=== PATIENT | female | born 1960 | race Caucasian/White ===

== ENCOUNTER 2022-12-09 08:07 | Emergency (ER) | payer MEDICARE, SELFPAY ==
[2022-12-09] VITALS (9 sets, daily range): BP systolic 134–151; BP diastolic 82–92; PULSE 73–90; RESP 16–21; TEMP 36.1; O2SAT 95–100
--- NOTE | 2022-12-09 08:17 | ED.DIZZY ---
HPI - Dizziness General Chief Complaint: Dizziness Stated Complaint: Stroke symptoms Time Seen by Provider: 12/09/22 08:10 Source: patient and RN notes reviewed Mode of arrival: ambulatory Limitations: no limitations History of Present Illness HPI Narrative: Patient states that she feels unsteady on her feet for the last couple of days. He says this sometimes happens when she takes her Seroquel early in the morning instead of at bedtime. She is concerned that she might be having a stroke. She was given some ice chips in the slurring of her speech went away because her mouth was so dry. She has no deficits. She complains of no loss of strength in any of her extremities. She also has a history of Meniere's disease. She says she did not take her Seroquel until 130 this morning. MD elicited complaint: disequilibrium Pertinent past history: Meniere's disease Onset (ago): day(s) (2) Timing: gradual onset Severity: mild Description: off-balance History of similar symptoms: Yes Exacerbating factors: movement/ambulation Relieving factors: rest Associated symptoms: denies other symptoms Related Data Home Medications Medication Instructions Recorded Confirmed atorvastatin 40 mg tablet 40 mg PO DAILY 12/09/22 12/09/22 benztropine 1 mg tablet 3 mg PO DAILY 12/09/22 12/09/22 carbamazepine 200 mg tablet 600 mg PO DAILY 12/09/22 12/09/22 clonidine HCl 0.1 mg tablet 2.5 mg PO DAILY 12/09/22 12/09/22 fesoterodine 8 mg tablet,extended 8 mg PO DAILY 12/09/22 12/09/22 release 24 hr galantamine 16 mg 24 hr 16 mg PO DAILY 12/09/22 12/09/22 capsule,extended release memantine 10 mg tablet 20 mg PO DAILY 12/09/22 12/09/22 omeprazole 40 mg capsule,delayed 40 mg PO DAILY 12/09/22 12/09/22 release quetiapine 200 mg tablet 400 mg PO HS 12/09/22 12/09/22 ropinirole 2 mg tablet 2 mg PO DAILY 12/09/22 12/09/22 Allergies Allergy/AdvReac Type Severity Reaction Status Date / Time erythromycin base AdvReac Vomiting Verified 12/09/22 08:36 Review of Systems Review of Systems: All systems reviewed & are unremarkable except as noted in HPI and below PMFSH Past Medical History Medical History (Updated 12/09/22 @ 09:23 by Nito Johnson MD) Alzheimer's dementia GERD (gastroesophageal reflux disease) Hyperlipidemia Menieres disease Overactive bladder Restless leg syndrome Exam Const: General: healthy appearing, no acute distress and alert ( Appears to be sleeping easily arousable) Nutritional Appearance: well nourished and obese morbidly obese Orientation/consciousness: patient oriented x3 Limitations: no limitations HENMT: Head: normal to inspection Face/Nose/Sinus: Normal external nose present Face and sinus: normal facial exam Mouth: Yes dry mucous membranes Throat: posterior oropharynx normal and uvula midline Eyes: Conjunctivae: conjunctivae normal Pupils: Equal, round and reactive pupils present EOM: EOMs intact bilaterally Neck: Neck: normal visual inspection Resp: Effort & Inspection: normal respiratory effort Auscultation: clear to auscultation bilaterally Cardio: Rate: regular rate Rhythm: regular rhythm GI: GI Palp: Yes Soft to palpation and No Tenderness to palpation present (GI) Auscultation: normal bowel sounds Back/Spine/Pelvis: Cervical Spine: cervical ROM normal Thoracic/Lumbar Spine: thoraco-lumbar ROM normal Skin: General skin exam: normal color Rashes: no rashes Neuro: General: patient oriented x3, moves all extremities, no meningeal signs, no focal motor deficits and CN's II-XI intact bilaterally Cranial nerves: Yes Nystagmus not present Speech: normal speech Gait exam (Neuro): Normal gait present Extrem: General: normal to inspection and no clubbing, cyanosis or edema Psych: Mental Status: mental status grossly normal Affect: normal affect Attitude: cooperative Course Vital Signs Vital signs: Vital Signs Temperature 36.1 C L 12/09/22 08:07 Pulse Rate 90 12/09/22 08:07 Resp
[2022-12-09 08:45] LABS: Basophils Absolute Auto 0.03 K/mm3 (0.00-0.10); Basophils Percent Auto 0.6 % (0.0-1.0); Eosinophils Absolute Auto 0.21 K/mm3 (0.02-0.50); Eosinophils Percent Auto 3.9 % (1.0-6.0); Hematocrit 43.7 % (35.0-49.0); Hemoglobin 13.3 g/dL (12.0-15.0); Immature Granulocyte Absolute 0.03 K/mm3 (0.00-0.00); Immature Granulocyte Percent A 0.6 % (0.0-0.0); Lymphocytes Absolute Auto 1.37 K/mm3 (1.10-4.50); Lymphocytes Percent Auto 25.4 % (18.0-42.0); Mean Corpuscular HGB Conc 30.4 g/dL (32.0-36.0); Mean Corpuscular Hemoglobin 29.5 pg (27.0-31.0); Mean Corpuscular Volume 96.9 fL (78.0-102.0); Monocytes Absolute Auto 0.37 K/mm3 (0.10-0.90); Monocytes Percent Auto 6.9 % (2.0-11.0); Neutrophils Absolute Auto 3.4 K/mm3 (1.7-7.2); Neutrophils Percent Auto 62.6 % (50.0-70.0); Platelet Count Result 202 K/mm3 (150-420); Red Blood Count 4.51 M/mm3 (4.20-5.40); Red Cell Distribution Width 13.3 % (11.6-14.4); White Blood Count 5.4 K/mm3 (4.8-10.8)
[2022-12-09 08:54] LABS: Add Urine Microscopic? NO; Appearance Urine Clear (Clear); Bilirubin Urine Negative (Negative); Blood Urine Negative (Negative); Color Urine Yellow (Yellow); Glucose Urine UA Negative (Negative); Ketones Urine Negative (Negative); Leukocyte Esterase Ur Negative LEU/UL (Negative); Nitrate Urine Negative (Negative); Protein Urine Negative (Negative); Specific Grav Ur >= 1.030 (1.010-1.020); Urobilinogen Urine 0.2 mg/dL (0.2-1.0); pH Urine 5.5 (5.0-8.0)
[2022-12-09 09:00] LABS: Alanine Aminotransferase 14 U/L (14-59); Alkaline Phosphatase 89 U/L (46-116); Anion Gap 7 mmol/L (8-16); Aspartate Amino Transferase < 10 U/L (15-37); Bilirubin,Total 0.3 mg/dL (0.00-1.00); Blood Urea Nitrogen 17 mg/dL (7-18); Calcium 7.8 mg/dL (8.5-10.1); Carbon Dioxide 29 mmol/L (21-32); Chloride 105 mmol/L (98-108); Estimated CRCL calculation 73 ml/min; Estimated Glomerular Filt Rate 57; Glucose 211 mg/dL (70-99); Magnesium 1.7 mg/dL (1.8-2.4); Osmolality Calculated 299 mOsm/kg (285-295); Potassium 3.4 mmol/L (3.5-5.1); Sodium 141 mmol/L (136-145)
[2022-12-09 09:02] LABS: CRP < 0.5 mg/dL (0.0-0.9)
[2022-12-09] MEDS: MECLIZINE HCL 25 MG TABLET PO (09:09)
--- NOTE | 2022-12-09 09:26 | PC.NURSE ---
PT IS ALERT, TEXTING ON HER CELL PHONE WITHOUT DIFFICULTY. PT IS SPEAKING WITHOUT DIFFICULTY. PT REPORTS SHE TOOK MECLIZINE FOR SEVERAL YEARS, WHICH HELPED THE SX SHE IS EXPERIENCING. PT STATES HER RIDE IS ON THE WAY AND SHE IS READY TO GO. ERP IS AWARE. WILL CONTINUE TO MONITOR.
== END 2022-12-09 09:30 | disposition home or self-care (01) ==
PROVIDERS: Emergency Provider Emergency Medicine
DX: E83.42 Hypomagnesemia (principal); T50.905A Adverse effect of unspecified drugs, medicaments and biological substances, initial encounter; G30.9 Alzheimer's disease, unspecified; F02.80 Dementia in other diseases classified elsewhere, unspecified severity, without behavioral disturbance, psychotic disturbance, mood disturbance, and anxiety; E78.5 Hyperlipidemia, unspecified; N32.81 Overactive bladder; G25.81 Restless legs syndrome; K21.9 Gastro-esophageal reflux disease without esophagitis
CPT/HCPCS: 36415; 80053; 81003; 83735; 85025; 86140; 99283; A9270